=== PATIENT | male | born 1960 | race Caucasian/White ===

== ENCOUNTER → 2017-02-18 | Day surgery (SDC) | payer OTHER ==
[~2017-02-18] MED LIST: AHIST25 MG PO; AMITRIPTYLINE H75 MG PO; AMLODIPINE BESY10 MG PO; BUPROPION XL300 MG PO; BYSTOLIC2.5 MG PO; FLEXERIL PO; FLEXERIL10 MG PO; HYDROCHLOROTHIA25 MG PO; INVOKAMET 50-11 EACH PO; JANUMET 50-1,1 UDTAB PO; KLONOPIN1 MG PO; LAMICTAL25 MG PO; LATUDA120 MG PO; LEXAPRO20 MG PO; LOSARTAN-HCTZ1 EACH PO; LYRICA300 MG PO; MELATONIN10 MG PO; METFORMIN PO; PAROXETINE HCL20 M1 PO; PROPRANOLOL HCL80 M1 PO; ROPINIROLE HCL5 MG PO; SUMATRIPTAN SU100 MG PO; TIZANIDINE HCL6 MG PO; TOPAMAX25 MG PO; TRAMADOL HCL50 M1 PO; VITAMIN D32000 UNIT PO; ZANAFLEX4 M1 PO
--- NOTE | ~2017-02-18 | OR ---
Unit #: [id number]: [id number] Patient: FAWAD RANGEL [id number] [address] [address] [id number] O MR#: [id number] NAME: FAWAD RANGEL. ROOM: Date of Procedure: 02/18/2017 Admission Date: 02/18/2017 Surgeon: Jamshid Bruno M.D. : 1960 Attending Physician: Jamshid Bruno M.D. Primary Care Physician: No Sarkar OPERATIVE REPORT PREOPERATIVE DIAGNOSES Back pain, radiculopathy, degenerative lumbar disk disease, and lumbar spinal stenosis. POSTOPERATIVE DIAGNOSES Back pain, radiculopathy, degenerative lumbar disk disease, and lumbar spinal stenosis. PROCEDURE PERFORMED Lumbar epidural steroid injection with intravenous sedation under fluoroscopic guidance for needle localization. HISTORY The patient is a 57-year-old male with return of back greater than lower extremity pain due to degenerative disk disease and spinal stenosis. He has done fairly well with conservative management and epidural steroid injection every 6 months or so. The pain has been worsening over the last month. Last injection was done seven months ago. Based on history, pathology, symptomatology, and response to treatment, plan is to repeat an epidural steroid injection today. DESCRIPTION OF PROCEDURE The patient was placed in a seated position. Standard monitors were applied. A 2 mg of Versed were given for sedation and anxiolysis, which were adequate. Vital signs remained stable. Sterile prep and drape then of the lumbar area was performed. The skin at the L5-S1 level was localized with 1% lidocaine. An 18-gauge Personalistead needle was then advanced via loss of resistance technique and fluoroscopic guidance in toward the epidural space. After confirming proper positioning with fluoroscopy and radiographic contrast, 80 mg of Depo-Medrol and 4 mL of 0.125% bupivacaine were deposited. The patient tolerated the procedure otherwise well and was discharged to the recovery room in stable condition. Dictated by... Rochelle MorrellP/prasanthl TD: 02/18/2017 12:04 JOB #: [id number] Unit #: [id number] #: [id number] Patient: FAWAD RANGEL OPERATIVE REPORT Page 1 of 1 X Jamshid Bruno MD X PROCEDURE OPERATIVE NOTE
== END | disposition home or self-care (01) ==
LOC: CCSC 08:39
DX: M51.16 Intervertebral disc disorders with radiculopathy, lumbar region (principal); M48.06 Spinal stenosis, lumbar region; I10 Essential (primary) hypertension; E11.9 Type 2 diabetes mellitus without complications; Z87.11 Personal history of peptic ulcer disease; Z91.040 Latex allergy status; Z79.84 Long term (current) use of oral hypoglycemic drugs; Z79.891 Long term (current) use of opiate analgesic; Z79.899 Other long term (current) drug therapy
CPT/HCPCS: 82947; J1040; J2250